=== PATIENT | male | born 1955 | race Caucasian/White ===

== ENCOUNTER 2017-12-15 14:59 | Inpatient (IN) | payer OTHER, MEDICARE ==
[~2017-12-15] VITALS: Ht 170.2 cm; Wt 64.0 kg
[2017-12-15] MEDS ORDERED: DIVA500T2 PO (15:08)
[2017-12-15] MEDS ORDERED: OLAN10TA3 PO (15:08)
[2017-12-15] MEDS ORDERED: MAGNESIUM HYDROXIDE 30 ML LIQUID UDC PO PRN (16:45)
[2017-12-15] MEDS ORDERED: LORAZEPAM 1 MG TABLET PO PRN (16:45)
[2017-12-15] MEDS ORDERED: MAG HYDROX/AL HYDROX/SIMETH 30 ML LIQUID UDC PO PRN (16:45)
[2017-12-15 17:07] VITALS: BP 122/71
[2017-12-15 20:23] LABS: BASOPHILS % (AUTO) 0.3 % (0.0-2.0); EOSINOPHILS # (AUTO) 0.2 K/uL (0.0-0.7); EOSINOPHILS % (AUTO) 4.2 % (0.0-7.0); HEMATOCRIT 39.3 % (36.7-47.1); HEMOGLOBIN 13.2 g/dL (12.5-16.3); LYMPHOCYTES # (AUTO) 1.7 K/uL (20.0-40.0); LYMPHOCYTES % (AUTO) 34.3 % (20.5-51.5); MEAN CORPUSCULAR HEMOGLOBIN 30.4 uug (23.8-33.4); MEAN CORPUSCULAR HGB CONC 34 g/dL (32.5-36.3); MEAN CORPUSCULAR VOLUME 90.6 fL (73.0-96.2); MONOCYTES # (AUTO) 0.4 K/uL (2.0-10.0); MONOCYTES % (AUTO) 7.6 % (0.0-11.0); NEUTROPHILS # (AUTO) 2.7 K/uL (1.8-8.9); NEUTROPHILS % (AUTO) 53.6 % (38.5-71.5); PLATELET COUNT (AUTO) 217 K/uL (152-348); RED BLOOD CELL COUNT(AUTO) 4.33 MIL/uL (4.06-5.63)
[2017-12-15 20:34] LABS: CREATININE 0.7 mg/dL (0.6-1.3); MAGNESIUM 1.9 mg/dL (1.8-2.4); PHOSPHOROUS 3.7 mg/dL (2.5-4.9); POTASSIUM 4.4 mmol/L (3.5-5.1)
[2017-12-15 20:38] VITALS: BP 100/69
[2017-12-15 20:45] LABS: THYROID STIMULATING HORMONE 2.984 mIU/mL (0.358-3.740)
[2017-12-16] MEDS: TEMAZEPAM 7.5 MG CAPSULE PO PRN ×2 (00:53→22:25)
[2017-12-16] MEDS: PANTOPRAZOLE SODIUM 40 MG TABLET.DR PO SCH (06:12)
[2017-12-16 07:10] LABS: CREATININE 0.8 mg/dL (0.6-1.3); MAGNESIUM 1.8 mg/dL (1.8-2.4); PHOSPHOROUS 3.9 mg/dL (2.5-4.9)
[2017-12-16 07:17] LABS: THYROID STIMULATING HORMONE 2.866 mIU/mL (0.358-3.740)
[2017-12-16 07:30] VITALS: BP 131/83
[2017-12-16] MEDS ORDERED: NICOTINE 7 MG/24HR PATCH TD SCH (09:00)
[2017-12-16] MEDS ORDERED: NICOTINE 14 MG/24HR PATCH TD SCH ×2 (09:00)
[2017-12-16] MEDS: DIVALPROEX 500 MG TABLET.DR PO SCH ×2 (12:00→20:19)
[2017-12-16] MEDS: OLANZAPINE ZYDIS 5 MG TAB.RAPDIS PO SCH ×3 (12:00→16:22)
[2017-12-16] MEDS: ACETAMINOPHEN 325 MG TABLET PO PRN (12:19)
[2017-12-16 15:08] VITALS: BP 118/68
[2017-12-16] MEDS: LORAZEPAM 0.5 MG TABLET PO PRN (16:22)
[2017-12-16 20:00] VITALS: BP 117/57
[2017-12-17] MEDS: PANTOPRAZOLE SODIUM 40 MG TABLET.DR PO SCH (06:10)
[2017-12-17 07:30] VITALS: BP 111/72
[2017-12-17] MEDS: OLANZAPINE ZYDIS 5 MG TAB.RAPDIS PO SCH ×3 (08:50→16:56)
[2017-12-17] MEDS: DIVALPROEX 500 MG TABLET.DR PO SCH ×2 (08:51→20:12)
[2017-12-17] MEDS: NICOTINE 14 MG/24HR PATCH TD SCH (08:51)
[2017-12-17] MEDS ORDERED: NICOTINE 7 MG/24HR PATCH TD SCH (09:00)
[2017-12-17] MEDS: ACETAMINOPHEN 325 MG TABLET PO PRN (09:46)
[2017-12-17 16:20] VITALS: BP 94/62
[2017-12-17] MEDS: LORAZEPAM 0.5 MG TABLET PO PRN (16:56)
[2017-12-17 19:30] VITALS: BP 112/66
[2017-12-17] MEDS: risperiDONE 1 MG TABLET PO SCH (20:12)
[2017-12-18] MEDS: PANTOPRAZOLE SODIUM 40 MG TABLET.DR PO SCH (06:03)
[2017-12-18 07:30] VITALS: BP 102/67
[2017-12-18] MEDS: DIVALPROEX 500 MG TABLET.DR PO SCH ×3 (08:29→20:08)
[2017-12-18] MEDS: NICOTINE 14 MG/24HR PATCH TD SCH (08:29)
[2017-12-18] MEDS: risperiDONE 1 MG TABLET PO SCH ×3 (08:29→20:08)
[2017-12-18] MEDS: OLANZAPINE ZYDIS 5 MG TAB.RAPDIS PO SCH ×2 (08:30→17:10)
[2017-12-18 15:22] VITALS: BP 94/45
[2017-12-18 20:00] VITALS: BP 115/68
[2017-12-18] MEDS: TEMAZEPAM 7.5 MG CAPSULE PO PRN (22:36)
[2017-12-19] MEDS: PANTOPRAZOLE SODIUM 40 MG TABLET.DR PO SCH (06:13)
[2017-12-19 08:06] VITALS: BP 110/81
[2017-12-19] MEDS: risperiDONE 1 MG TABLET PO SCH ×3 (08:23→20:07)
[2017-12-19] MEDS: DIVALPROEX 500 MG TABLET.DR PO SCH ×3 (08:23→20:07)
[2017-12-19] MEDS: NICOTINE 14 MG/24HR PATCH TD SCH (08:23)
[2017-12-19] MEDS: OLANZAPINE ZYDIS 5 MG TAB.RAPDIS PO SCH (08:24)
[2017-12-19 16:30] VITALS: BP 125/72
[2017-12-19 16:43] LABS: BASOPHILS % (AUTO) 0.2 % (0.0-2.0); EOSINOPHILS # (AUTO) 0.2 K/uL (0.0-0.7); EOSINOPHILS % (AUTO) 2.1 % (0.0-7.0); HEMATOCRIT 39.7 % (36.7-47.1); HEMOGLOBIN 13.3 g/dL (12.5-16.3); LYMPHOCYTES # (AUTO) 2.2 K/uL (20.0-40.0); LYMPHOCYTES % (AUTO) 29.7 % (20.5-51.5); MEAN CORPUSCULAR HEMOGLOBIN 30.4 uug (23.8-33.4); MEAN CORPUSCULAR HGB CONC 34 g/dL (32.5-36.3); MEAN CORPUSCULAR VOLUME 90.5 fL (73.0-96.2); MONOCYTES # (AUTO) 0.4 K/uL (2.0-10.0); MONOCYTES % (AUTO) 6.1 % (0.0-11.0); NEUTROPHILS # (AUTO) 4.5 K/uL (1.8-8.9); NEUTROPHILS % (AUTO) 61.9 % (38.5-71.5); PLATELET COUNT (AUTO) 215 K/uL (152-348); RED BLOOD CELL COUNT(AUTO) 4.38 MIL/uL (4.06-5.63); WHITE BLOOD COUNT (AUTO) 7.3 K/uL (3.6-10.2)
[2017-12-19 20:14] VITALS: BP 101/68
[2017-12-19] MEDS ORDERED: OLANZAPINE ZYDIS 5 MG TAB.RAPDIS PO SCH (21:00)
[2017-12-20] MEDS: PANTOPRAZOLE SODIUM 40 MG TABLET.DR PO SCH (06:06)
[2017-12-20 07:30] VITALS: BP 99/62
[2017-12-20 08:11] LABS: BASOPHILS % (AUTO) 0.2 % (0.0-2.0); EOSINOPHILS # (AUTO) 0.2 K/uL (0.0-0.7); EOSINOPHILS % (AUTO) 3.7 % (0.0-7.0); HEMATOCRIT 38.1 % (36.7-47.1); HEMOGLOBIN 13.2 g/dL (12.5-16.3); LYMPHOCYTES # (AUTO) 1.4 K/uL (20.0-40.0); LYMPHOCYTES % (AUTO) 28.3 % (20.5-51.5); MEAN CORPUSCULAR HGB CONC 35 g/dL (32.5-36.3); MEAN CORPUSCULAR VOLUME 89.5 fL (73.0-96.2); MONOCYTES # (AUTO) 0.4 K/uL (2.0-10.0); MONOCYTES % (AUTO) 7.8 % (0.0-11.0); NEUTROPHILS # (AUTO) 2.9 K/uL (1.8-8.9); PLATELET COUNT (AUTO) 189 K/uL (152-348); RED BLOOD CELL COUNT(AUTO) 4.26 MIL/uL (4.06-5.63); WHITE BLOOD COUNT (AUTO) 4.8 K/uL (3.6-10.2)
[2017-12-20] MEDS: NICOTINE 14 MG/24HR PATCH TD SCH (08:25)
[2017-12-20 08:26] LABS: ALANINE AMINOTRANSFERASE 31 U/L (16-63); ALKALINE PHOSPHATASE 60 U/L (50-136); ASPARTATE AMINOTRANSFERASE 21 U/L (15-37); BILIRUBIN,TOTAL 0.4 mg/dL (0.2-1.0); CARBON DIOXIDE 30 mmol/L (21-32); CHLORIDE 106 mmol/L (98-107); CREATININE 0.6 mg/dL (0.6-1.3); GLUCOSE 87 mg/dL (74-106); PHOSPHOROUS 3.8 mg/dL (2.5-4.9); POTASSIUM 4.2 mmol/L (3.5-5.1); TOTAL PROTEIN, SERUM 6.7 g/dL (6.4-8.2); UREA NITROGEN, BLOOD 18 mg/dL (7-18)
[2017-12-20] MEDS: DIVALPROEX 500 MG TABLET.DR PO SCH ×3 (08:26→20:35)
[2017-12-20] MEDS: risperiDONE 1 MG TABLET PO SCH ×3 (08:26→16:34)
[2017-12-20 14:50] VITALS: BP 111/64
[2017-12-20] MEDS ORDERED: OLANZAPINE ZYDIS 5 MG TAB.RAPDIS PO SCH (21:00)
[2017-12-20] MEDS ORDERED: risperiDONE 2 MG TABLET PO SCH (21:00)
[2017-12-20 21:46] LABS: *OCCULT BLOOD STOOL NEGATIVE (NEGATIVE)
[2017-12-20 21:55] VITALS: BP 118/63
[2017-12-21] MEDS: PANTOPRAZOLE SODIUM 40 MG TABLET.DR PO SCH (06:43)
[2017-12-21 07:30] VITALS: BP 106/57
[2017-12-21] MEDS ORDERED: INVEGA SUSTENNA 234 MG IM SCH (09:00)
[2017-12-21] MEDS: NICOTINE 14 MG/24HR PATCH TD SCH (09:37)
[2017-12-21] MEDS: DIVALPROEX 500 MG TABLET.DR PO SCH ×3 (09:37→20:17)
[2017-12-21] MEDS: risperiDONE 1 MG TABLET PO SCH ×2 (09:37→12:38)
[2017-12-21 15:35] VITALS: BP 109/62
[2017-12-21 22:10] VITALS: BP 110/70
[2017-12-21] MEDS: TEMAZEPAM 7.5 MG CAPSULE PO PRN (22:59)
[2017-12-22] MEDS: PANTOPRAZOLE SODIUM 40 MG TABLET.DR PO SCH (06:15)
[2017-12-22 06:46] LABS: BASOPHILS % (AUTO) 0.2 % (0.0-2.0); EOSINOPHILS # (AUTO) 0.2 K/uL (0.0-0.7); HEMOGLOBIN 13.3 g/dL (12.5-16.3); LYMPHOCYTES # (AUTO) 1.7 K/uL (20.0-40.0); LYMPHOCYTES % (AUTO) 30.3 % (20.5-51.5); MEAN CORPUSCULAR HEMOGLOBIN 30.7 uug (23.8-33.4); MEAN CORPUSCULAR HGB CONC 34 g/dL (32.5-36.3); MEAN CORPUSCULAR VOLUME 89.8 fL (73.0-96.2); MONOCYTES # (AUTO) 0.5 K/uL (2.0-10.0); MONOCYTES % (AUTO) 9.7 % (0.0-11.0); NEUTROPHILS # (AUTO) 3.2 K/uL (1.8-8.9); NEUTROPHILS % (AUTO) 56.8 % (38.5-71.5); PLATELET COUNT (AUTO) 193 K/uL (152-348); RED BLOOD CELL COUNT(AUTO) 4.34 MIL/uL (4.06-5.63); WHITE BLOOD COUNT (AUTO) 5.6 K/uL (3.6-10.2)
[2017-12-22 07:08] LABS: BILIRUBIN,TOTAL 0.4 mg/dL (0.2-1.0); CREATININE 0.8 mg/dL (0.6-1.3); PHOSPHOROUS 3.7 mg/dL (2.5-4.9); POTASSIUM 4.4 mmol/L (3.5-5.1); TOTAL PROTEIN, SERUM 6.9 g/dL (6.4-8.2)
[2017-12-22] MEDS: DIVALPROEX 500 MG TABLET.DR PO SCH ×3 (07:48→21:04)
[2017-12-22 07:58] VITALS: BP 97/60
[2017-12-22] MEDS: NICOTINE 14 MG/24HR PATCH TD SCH (08:01)
[2017-12-22 17:03] VITALS: BP 108/59
[2017-12-22 20:22] VITALS: BP 105/60
[2017-12-22] MEDS: ACETAMINOPHEN 325 MG TABLET PO PRN (22:02)
[2017-12-22] MEDS: TEMAZEPAM 7.5 MG CAPSULE PO PRN (22:02)
[2017-12-23] MEDS: PANTOPRAZOLE SODIUM 40 MG TABLET.DR PO SCH (06:21)
[2017-12-23 07:22] LABS: BASOPHILS % (AUTO) 0.2 % (0.0-2.0); EOSINOPHILS # (AUTO) 0.2 K/uL (0.0-0.7); EOSINOPHILS % (AUTO) 2.7 % (0.0-7.0); HEMATOCRIT 39.7 % (36.7-47.1); LYMPHOCYTES # (AUTO) 1.7 K/uL (20.0-40.0); LYMPHOCYTES % (AUTO) 31.1 % (20.5-51.5); MEAN CORPUSCULAR HEMOGLOBIN 31.3 uug (23.8-33.4); MEAN CORPUSCULAR HGB CONC 35 g/dL (32.5-36.3); MONOCYTES # (AUTO) 0.5 K/uL (2.0-10.0); NEUTROPHILS # (AUTO) 3.2 K/uL (1.8-8.9); PLATELET COUNT (AUTO) 192 K/uL (152-348); RED BLOOD CELL COUNT(AUTO) 4.46 MIL/uL (4.06-5.63); WHITE BLOOD COUNT (AUTO) 5.6 K/uL (3.6-10.2)
[2017-12-23 07:30] VITALS: BP 100/62
[2017-12-23 07:35] LABS: MAGNESIUM 1.8 mg/dL (1.8-2.4)
[2017-12-23] MEDS: DIVALPROEX 500 MG TABLET.DR PO SCH ×3 (08:36→20:18)
[2017-12-23] MEDS: NICOTINE 14 MG/24HR PATCH TD SCH (08:36)
[2017-12-23 15:42] VITALS: BP 100/61
[2017-12-23 20:43] VITALS: BP 106/58
[2017-12-24] MEDS: PANTOPRAZOLE SODIUM 40 MG TABLET.DR PO SCH (06:12)
[2017-12-24 07:30] VITALS: BP 105/63
[2017-12-24] MEDS: NICOTINE 14 MG/24HR PATCH TD SCH (08:48)
[2017-12-24] MEDS: FAMOTIDINE 20 MG TABLET PO SCH (08:48)
[2017-12-24] MEDS: DIVALPROEX 500 MG TABLET.DR PO SCH ×3 (08:48→19:53)
[2017-12-24 15:39] VITALS: BP 95/56
[2017-12-24] MEDS: ACETAMINOPHEN 325 MG TABLET PO PRN (19:53)
[2017-12-24 20:22] VITALS: BP 104/65
[2017-12-24] MEDS: TEMAZEPAM 7.5 MG CAPSULE PO PRN (22:21)
[2017-12-25] MEDS: PANTOPRAZOLE SODIUM 40 MG TABLET.DR PO SCH (06:10)
[2017-12-25 07:30] VITALS: BP 91/53
[2017-12-25] MEDS: FAMOTIDINE 20 MG TABLET PO SCH (08:44)
[2017-12-25] MEDS: NICOTINE 14 MG/24HR PATCH TD SCH (08:45)
[2017-12-25] MEDS: DIVALPROEX 500 MG TABLET.DR PO SCH ×3 (08:45→20:14)
[2017-12-25 15:36] VITALS: BP 98/61
[2017-12-25 20:11] VITALS: BP 110/65
[2017-12-25] MEDS ORDERED: BENZTROPINE MESYLATE 1 MG TABLET PO SCH (21:00)
[2017-12-25] MEDS: TEMAZEPAM 7.5 MG CAPSULE PO PRN (22:20)
[2017-12-26] MEDS: PANTOPRAZOLE SODIUM 40 MG TABLET.DR PO SCH (06:12)
[2017-12-26 07:30] VITALS: BP 103/50
[2017-12-26] MEDS: NICOTINE 14 MG/24HR PATCH TD SCH (08:09)
[2017-12-26] MEDS: FAMOTIDINE 20 MG TABLET PO SCH (08:09)
[2017-12-26] MEDS: DIVALPROEX 500 MG TABLET.DR PO SCH (08:09)
== END 2017-12-26 10:45 | disposition home or self-care (01) | DRG 885 ==
LOC: ER 15:01 → GPS 16:10
PROVIDERS: ADMIT Psychiatry & Neurology Psychosomatic Medicine; ATTEND Registered Nurse
DX: F25.0 Schizoaffective disorder, bipolar type (principal); G90.50 Complex regional pain syndrome I, unspecified; G47.00 Insomnia, unspecified; K21.9 Gastro-esophageal reflux disease without esophagitis; Z82.3 Family history of stroke; Z80.9 Family history of malignant neoplasm, unspecified; R74.0 Nonspecific elevation of levels of transaminase and lactic acid dehydrogenase [LDH]; Z96.89 Presence of other specified functional implants; Z90.49 Acquired absence of other specified parts of digestive tract; Z79.899 Other long term (current) drug therapy; F12.90 Cannabis use, unspecified, uncomplicated; A08.4 Viral intestinal infection, unspecified; Z72.0 Tobacco use; R73.9 Hyperglycemia, unspecified
CPT/HCPCS: 36415; 70030-TC; 71045; 80164; 83735; 84100; 84443; 85025; 93005; A4663; A9150